=== PATIENT | male | born 1990 | race American Indian/Alaskan Native ===

== ENCOUNTER 2017-11-19 09:02 | Emergency (ER) | payer SELFPAY ==
[2017-11-19 09:23] VITALS: BP 125/80
[2017-11-19] MEDS ORDERED: TORADOL IM ONE (10:57)
--- NOTE | 2017-11-19 11:01 | Emergency Department Report ---
HPI - General Chief Complaint: Dental/Oral Time Seen by Provider: 11/19/17 10:52 - HPI HPI: Room 34 The patient is a 27-year-old male presented with a chief complaint toothache. Patient states he's had pain in tooth #29 for approximately 2 months. Patient denies any preceding trauma or fever. Patient gives his pain a score of "20/ 10." Location: [See above] Duration: 2 months Quality: Pain Severity: "20/10" Modifying factors: [see above] Context: [see above] Mode of transportation: [not driving] ED Past Medical Hx - Past Medical History Previous Medical History?: No - Surgical History Past Surgical History?: No - Family History Family history: no significant - Social History Smoking Status: Never Smoker Substance Use Type: None (denies illicit drug use) - Medications Home Medications: Home Medications Medication Instructions Recorded Confirmed Last Taken Type Ibuprofen [Motrin 800 MG tab] 800 mg PO Q8HR PRN #20 tablet 11/19/17 Unknown Rx traMADol [Ultram] 50 mg PO Q6HR PRN #14 tablet 11/19/17 Unknown Rx ED Review of Systems ROS: Stated complaint: RT SIDE TOOTH PAIN Other details as noted in HPI Constitutional: denies: fever Eyes: denies: eye pain ENT: dental pain Respiratory: no symptoms reported Cardiovascular: denies: chest pain Endocrine: no symptoms reported Gastrointestinal: denies: abdominal pain Genitourinary: denies: dysuria Musculoskeletal: denies: back pain Neurological: denies: headache Physical Exam - Physical Exam Vital Signs: Vital Signs 11/19/17 09:19 Temperature 98.3 F Pulse Rate 79 Blood Pressure 125/80 O2 Sat by Pulse 98 Oximetry Physical Exam: GENERAL: The patient is well-developed well-nourished male sitting on stretcher not appearing to be in acute distress. [] HEENT: Normocephalic. Atraumatic. Extraocular motions are intact. Patient points to tooth #29 as source of pain. No evidence of infection visualized. Gingiva within normal limits. Tooth is tender to palpation NECK: Supple. Trachea midline CHEST/LUNGS: There is no respiratory distress noted. SKIN: There is no rash. There is no edema. There is no diaphoresis. NEURO: The patient is awake, alert, and oriented. The patient is cooperative. The patient has normal speech MUSCULOSKELETAL: There is no evidence of acute injury. ED Course Vital Signs 11/19/17 09:19 Temperature 98.3 F Pulse Rate 79 Blood Pressure 125/80 O2 Sat by Pulse 98 Oximetry ED Medical Decision Making - Differential Diagnosis dental caries, dental abscess, toothache Critical care attestation.: If time is entered above; I have spent that time in minutes in the direct care of this critically ill patient, excluding procedure time. ED Disposition Clinical Impression: Acute oral pain, Toothache Disposition: TO HOME OR SELFCARE Is pt being admited?: No Does the pt Need Aspirin: No Condition: Stable Instructions: Toothache (ED) Additional Instructions: Return to the emergency department immediately should you develop worsening symptoms, fever, inability to tolerate food or liquid or any other concerns. Prescriptions: Ibuprofen [Motrin 800 MG tab] 800 mg PO Q8HR PRN #20 tablet PRN Reason: Pain, Moderate (4-6) traMADol [Ultram] 50 mg PO Q6HR PRN #14 tablet PRN Reason: Pain Referrals: PRIMARY CARE,MD [Primary Care Provider] - 3-5 Days [facility] [Outside] - 3-5 Days Time of Disposition: 11:03
== END 2017-11-19 11:34 | disposition home or self-care (01) ==
LOC: ED 09:02
DX: K08.89 Other specified disorders of teeth and supporting structures (principal)
CPT/HCPCS: 96372; 99282; J1885